=== PATIENT | female | born 1995 | race Caucasian/White ===

== ENCOUNTER 2017-03-01 12:45 | Emergency (ER) | payer OTHER ==
[~2017-03-01] VITALS: Ht 160 cm; Wt 62.9 kg
[2017-03-01 12:51] VITALS: TEMP 37.2; Ht 160 cm; Wt 62.9 kg
[2017-03-01] MEDS ORDERED: BCPILLS PO (13:33)
[2017-03-01] MEDS ORDERED: CLR10 PO (13:34)
[2017-03-01] MEDS ORDERED: FAMO20TA11 PO (13:34)
[2017-03-01] MEDS ORDERED: CYAN10005 PO (13:36)
[2017-03-01 13:42] LABS: BASO % 0.1 %; BASO ABS # 0.01 K/uL (0-0.2); COMPLETE YES; EOS % 0.4 %; HEMATOCRIT 41.9 % (37-47); IG% 0.2 %; LYMPH % 14.9 %; LYMPH ABS # 1.67 K/uL (1.2-3.4); MEAN CELL VOLUME 84.8 fL (80-100); MEAN CORPUSCULAR HEMOGLOBIN 28.9 pg (25-34); MEAN CORPUSCULAR HGB CONC 34.1 g/dl (32-36); MEAN PLATELET VOLUME 9.8 fL (7.4-10.4); MONO % 4.5 %; NEUT % 79.9 %; PLATELET COUNT 369 K/uL (130-400); RED BLOOD COUNT 4.94 M/uL (4.2-5.4)
[2017-03-01] MEDS ORDERED: MULTTAB58 PO (13:42)
[2017-03-01] MEDS ORDERED: MISCCAP80 PO (13:42)
[2017-03-01] MEDS ORDERED: CHOLTAB11 PO (13:44)
[2017-03-01] MEDS ORDERED: 5-HY1CAP3 PO (13:44)
[2017-03-01 13:55] LABS: URINE APPEARANCE CLEAR (CLEAR); URINE BILIRUBIN NEG (NEG); URINE COLOR YELLOW; URINE EPITHELIAL CELL AUTO >30 /lpf (0-5); URINE NITRITE NEG (NEG); URINE SPECIFIC GRAVITY 1.021 (1.000-1.030); UROBILINOGEN NEG (NEG); ZZUR CULT IF INDIC CLEAN CATCH NO
[2017-03-01 13:57] LABS: MANUAL MICROSCOPIC REQUIRED? NO; REVIEW REQ? NO
[2017-03-01 14:12] LABS: BUN/CREATININE RATIO 11.5 (10-20); CREATININE 0.85 mg/dl (0.60-1.20); POTASSIUM 3.6 mmol/L (3.5-5.1)
[2017-03-01 14:22] LABS: THYROID STIMULATING HORMONE 0.971 uIu/ml (0.300-4.500)
[2017-03-01 14:41] LABS: PREG INTERNAL NEGATIVE QC NEG CLEAR BACKGROUND; PREG INTERNAL POSITIVE QC POS CONTROL LINE
[2017-03-01] MEDS ORDERED: ONDA4TAB10 SL (15:31)
--- NOTE | 2017-03-01 15:32 | EMERGENCY ROOM VISIT NOTE ---
History First contact with patient: 13:00 Chief Complaint: VOMITING Stated Complaint: VOMITING STOMACH ACID,DIARRHEA,NAUSEA,FEVER Nursing Triage Summary: nagging abdominal pain and vomiting in the morning for the past month or so. History of Present Illness The patient is a 22 year old female who presents to the Emergency Room with complaints of persistent abdominal pain and vomiting. The patient reports that she had "food poisoning" approximately one month ago. She reports that since then, she had a few weeks of nausea and diarrhea every time that she ate. The diarrhea has resolved. She states that she has been nauseous over the past one week. She has been vomiting first thing in the morning and sometimes after eating. Overall, her symptoms have been occurring for approximately one month. She states that she has had similar symptoms in the past and has been tested for celiac, which was negative. She is concerned because there is a family history of celiac disease. The patient reports that she personally has a history of lactose intolerance and takes Lactaid with relief. She denies any abdominal pain at this time. She denies any fevers/chills, urinary symptoms or chance of . Review of Systems A complete 10 point review of systems was reviewed with the patient with pertinent positives and negatives as per history of present illness. All else were negative. Social History Smoking Status: Never Smoker Current/Historical Medications Scheduled 5-Hydroxytryptophan (5-Htp), 100 MG PO DAILY Control Pills ( Control Pills), 1 TAB PO DAILY Cholecalciferol (D-5000), 1 TAB PO DAILY Cyanocobalamin (Vitamin B-12), 1,000 MCG PO DAILY Famotidine (Pepcid), 20 MG PO DAILY Loratadine (Claritin), 10 MG PO DAILY Multiple Vitamin (Multivitamin), 1 TAB PO DAILY Ondasetron Odt (Zofran Odt), 4 MG SL Q6H Probiotic Product (Probiotic), 1 CAP PO BID Allergies Coded Allergies: No Known Allergies (Unverified , 03/01/17) Physical Exam Vital Signs Date Time Temp Pulse Resp B/P Pulse Ox O2 Delivery O2 Flow Rate FiO2 03/01/17 15:40 78 16 120/78 98 03/01/17 14:47 84 16 117/77 99 Room Air 03/01/17 12:51 37.2 91 18 116/79 100 Room Air Physical Exam VITALS: Vitals are noted on the nurse's note and reviewed by myself. Vital signs stable. GENERAL: This is a 22-year-old female, in no acute distress, nondiaphoretic, well-developed well-nourished. SKIN: Capillary reflex less than 2 seconds. HEENT: Normocephalic. PERRLA. EOMI. Nares patent. Mucous membranes moist. Neck is supple without nuchal rigidity. HEART: Regular rate and rhythm without murmurs gallops or rubs. LUNGS: Clear to auscultation bilaterally without wheezes, rales or rhonchi. ABDOMEN: Positive bowel sounds x 4. Soft, nontender to palpation. No masses or organomegaly. NEURO: Patient was alert and oriented to person place and time. Medical Decision & Procedures Laboratory Results 03/01/17 13:30 Red Blood Count 4.94, Mean Corpuscular Volume 84.8, Mean Corpuscular Hemoglobin 28.9, Mean Corpuscular Hemoglobin Concent 34.1, Mean Platelet Volume 9.8, Neutrophils (%) (Auto) 79.9, Lymphocytes (%) (Auto) 14.9, Monocytes (%) (Auto) 4.5, Eosinophils (%) (Auto) 0.4, Basophils (%) (Auto) 0.1, Neutrophils # (Auto) 8.95, Lymphocytes # (Auto) 1.67, Monocytes # (Auto) 0.50, Eosinophils # (Auto) 0.05, Basophils # (Auto) 0.01 03/01/17 13:30 Test 03/01/17 13:00 03/01/17 13:30 03/01/17 15:25 Urine Color YELLOW Urine Appearance CLEAR (CLEAR) Urine pH 5.0 (4.5-7.5) Urine Specific [place] 1.021 (1.000-1.030) Urine Protein NEG (NEG) Urine Glucose (UA) NEG (NEG) Urine Ketones TRACE (NEG) Urine Occult Blood TRACE (NEG) Urine Nitrite NEG (NEG) Urine Bilirubin NEG (NEG) Urine Urobilinogen NEG (NEG) Urine Leukocyte Esterase TRACE (NEG) Urine WBC (Auto) 1-5 /hpf (0-5) Urine RBC (Auto) 0-4 /hpf (0-4) Urine Hyaline Casts (Auto) 1-5 /lpf (0-5) Urine Epithelial Cells (Auto) >30 /lpf (0-5) Urine Bacteria (Auto) NEG (NEG) Urine Test NEG (NEG) White Blood Count 11.20 K/uL (4.8-10.8) Red Blood Count 4.94 M/uL (4.2-5.4) Hemoglobin 14.3 g/dL (12.0-16.0) Hematocrit 41.9 % (37-47) Mean Corpuscular Volume 84.8 fL (80-100) Mean Corpuscular Hemoglobin 28.9 pg (25-34) Mean Corpuscular Hemoglobin Concent 34.1 g/dl (32-36) Platelet Count 369 K/uL (130-400) Mean Platelet Volume 9.8 fL (7.4-10.4) Neutrophils (%) (Auto) 79.9 % Lymphocytes (%) (Auto) 14.9 % Monocytes (%) (Auto) 4.5 % Eosinophils (%) (Auto) 0.4 % Basophils (%) (Auto) 0.1 % Neutrophils # (Auto) 8.95 K/uL (1.4-6.5) Lymphocytes # (Auto) 1.67 K/uL (1.2-3.4) Monocytes # (Auto) 0.50 K/uL (0.11-0.59) Eosinophils # (Auto) 0.05 K/uL (0-0.5) Basophils # (Auto) 0.01 K/uL (0-0.2) RDW Standard Deviation 41.7 fL (36.4-46.3) RDW Coefficient of Variation 13.5 % (11.5-14.5) Immature Granulocyte % (Auto) 0.2 % Immature Granulocyte # (Auto) 0.02 K/uL (0.00-0.02) Anion Gap 10.0 mmol/L (3-11) Est Creatinine Clear Calc Drug Dose 93.5 ml/min Estimated GFR () 113.5 Estimated GFR (Non- 97.9 BUN/Creatinine Ratio 11.5 (10-20) Calcium Level 10.0 mg/dl (8.5-10.1) Total Bilirubin 0.9 mg/dl (0.2-1) Aspartate Amino Transf (AST/SGOT) 18 U/L (15-37) Alanine Aminotransferase (ALT/SGPT) 22 U/L (12-78) Alkaline Phosphatase 61 U/L (45-117) Total Protein 8.4 gm/dl (6.4-8.2) Albumin 4.3 gm/dl (3.4-5.0) Globulin 4.1 gm/dl (2.5-4.0) Albumin/Globulin Ratio 1.0 (0.9-2) Lipase 105 U/L (73-393) Thyroid Stimulating Hormone (TSH) 0.971 uIu/ml (0.300-4.500) Medical Decision Differential diagnosis includes food intolerance, IBS, IBD, among others. The patient was evaluated as above. Labs revealed no anemia or concerning electrolyte abnormalities. There was a mild leukocytosis likely secondary to vomiting. Urinalysis was not suggestive of infection. Urine was negative. The patient requested a celiac panel and they were informed that this was a send out test, but insisted that they have drawn. The patient's physical exam was benign. I suspect her symptoms are likely secondary to IBS or possibly a food intolerance. She was instructed to follow-up with gastroenterology regarding her symptoms. She was given a prescription of Zofran. She verbalized understanding of my assessment and treatment plan and was discharged home in good condition. The patient's case was reviewed with Dr. Friend, ED attending physician, who agreed with my assessment and treatment plan. Impression Primary Impression: Vomiting Departure Information Dispostion Home / Self-Care Condition GOOD Prescriptions Ondasetron Odt (ZOFRAN ODT) 4 Mg Tab 4 MG SL Q6H for Nausea, #25 TAB Prov: Rachell Yoon, NATY 03/01/17 Referrals No Doctor, Assigned (PCP) Lv Arellano MD Patient Instructions My [facility] Additional Instructions You have been prescribed Zofran to be used for any nausea or vomiting. Take as prescribed. Follow-up with gastroenterology. Return for any new/concerning symptoms.
[2017-03-01 15:40] VITALS: BP 120/78; PULSE 78; O2SAT 98
[2017-03-06 16:35] LABS: IGA SERUM 151 mg/dL (81-463); TIS TRANS IGA 1 U/mL (<4)
== END 2017-03-01 15:41 | disposition home or self-care (01) ==
LOC: C.EDB 12:52
DX: R11.10 Vomiting, unspecified (principal); Z79.3 Long term (current) use of hormonal contraceptives; Z79.899 Other long term (current) drug therapy; Z83.79 Family history of other diseases of the digestive system